=== PATIENT | male | born 1985 | race African-American/Black ===

== ENCOUNTER 2020-01-30 09:49 | Emergency (ER) | payer OTHER ==
[~2020-01-30] VITALS: Ht 170.2 cm; Wt 68.2 kg
[2020-01-30 10:00] VITALS: BP 140/92
== END 2020-01-30 14:12 | disposition home or self-care (01) ==
LOC: EMS 09:54
DX: F15.159 Other stimulant abuse with stimulant-induced psychotic disorder, unspecified (principal); F12.90 Cannabis use, unspecified, uncomplicated; F32.9 Major depressive disorder, single episode, unspecified